=== PATIENT | female | born 1990 | race Caucasian/White ===

== ENCOUNTER 2018-06-30 19:18 | Emergency (ER) | payer MEDICAID ==
[~2018-06-30] VITALS: Ht 149.9 cm; Wt 80.0 kg
[2018-06-30] MEDS ORDERED: EPIN0.3P3 INJ (19:41)
[2018-06-30] MEDS ORDERED: BUDE10.22 INH (19:41)
[2018-06-30] MEDS ORDERED: MONT10TA6 PO (19:41)
[2018-06-30] MEDS ORDERED: CETI-237 PO (19:41)
[2018-06-30] MEDS ORDERED: FLUT9.9S NAS (19:41)
[2018-06-30] MEDS ORDERED: FAMOTIDINE 20 MG TABLET ONE (19:42)
[2018-06-30] MEDS ORDERED: FAMOTIDINE 20 MG TABLET PO ONE (20:00)
[2018-06-30 21:05] VITALS: BP 117/70
== END 2018-06-30 21:07 | disposition home or self-care (01) ==
LOC: ED 20:28
DX: T78.01XA Anaphylactic reaction due to peanuts, initial encounter (principal); X58.XXXA Exposure to other specified factors, initial encounter
CPT/HCPCS: 99283; J7512